=== PATIENT | male | born 1945 | race Caucasian/White ===

== ENCOUNTER 2016-12-27 16:11 | Emergency (ER) | payer MEDICARE, OTHER ==
[~2016-12-27] VITALS: Ht 165.1 cm; Wt 74.8 kg
--- NOTE | 2016-12-27 16:25 | NUR ---
PT REFUSES ANY TESTS AND/OR INTERVENTIONS. DR ACUÑA MADE AWARE.
--- NOTE | 2016-12-27 16:25 | NUR ---
PT TO ED ROOM 04. SENT FROM [facility] FOR EVALUATION OF GANGRENE TO R FOOT. A/A/O. NAD. VS WNL. SIDE RAILS UP. HOB ELEVATED. CONNECTED TO MONITOR. AWAITING EVALUATION BY ER PROVIDER.
--- NOTE | 2016-12-27 16:42 | NUR ---
CALLED DR Starkey, ON THE PHONE WITH DR ACUÑA.
--- NOTE | 2016-12-27 16:45 | NUR ---
DR Starkey ETA TO ASSESS PATIENT ~ [address] ACUÑA. PATIENT MADE AWARE.
--- NOTE | 2016-12-27 18:37 | NUR ---
SEEN BY DR BUNCH. WILL BE D/C'ED
--- NOTE | 2016-12-27 19:30 | NUR ---
AWAITING FOR TRANSFER BACK TO FACILITY/B&C
[2016-12-27 20:10] VITALS: BP 135/75
--- NOTE | 2016-12-27 20:10 | NUR ---
Patient discharged to FACILITY in stable condition. Written and verbal after care instructions given. Patient verbalizes understanding of instruction. AMBULANCE AT BEDSIDE.
[2016-12-27] MEDS ORDERED: INSULIN REGULAR, HUMAN 100 UNIT/ML 10 ML VIAL SQ ONE (20:30)
== END 2016-12-27 20:11 | disposition home or self-care (01) ==
LOC: ER 16:15
DX: I96 Gangrene, not elsewhere classified (principal); Z89.512 Acquired absence of left leg below knee
CPT/HCPCS: 82962; 99283; A4606; Z7610